=== PATIENT | male | born 1965 | race Caucasian/White ===

== ENCOUNTER → 2020-08-23 | Outpatient (CLI) | payer BC, OTHER ==
--- NOTE | 2020-08-25 16:02 | REP ---
LIMITED ABDOMINAL ULTRASOUND: 08/23/20. CLINICAL: Upper abdominal pain with nausea and vomiting. TECHNIQUE: Real time cosme scale ultrasound examination using curved array transducer. FINDINGS: Evaluation is limited due to overlying bowel gas and poor imaging window. The visualized portions of the liver are grossly unremarkable. There is a 9mm simple cyst in the right hepatic lobe. The pancreas is incompletely evaluated due to interposed bowel gas. The gallbladder is normal and without gallstones, wall thickening, or pericholecystic fluid. No biliary ductal dilation is appreciated and the common bile duct measures 4.3mm diameter. The right kidney is normal in reniform shape without hydronephrosis and measures 11.2 x 6.8 x 5.9cm. No ascites in the visualized right upper quadrant. IMPRESSION: 1. Sub centimeter benign appearing hepatic cyst. 2. Otherwise limited but grossly unremarkable right upper quadrant abdominal ultrasound. MTDD
== END ==
LOC: M RAD 06:31
PROVIDERS: ATTEND Physician Assistant Medical
DX: K76.89 Other specified diseases of liver (principal); R11.2 Nausea with vomiting, unspecified; R10.10 Upper abdominal pain, unspecified

== ENCOUNTER → 2020-10-23 | Outpatient (CLI) | payer BC ==
[~2020-10-23] MED LIST: GABA-843; LANTINJ4; LISI-542; METF-838; OMEP-218; ROSU10TA6
== END ==
LOC: M LABSMTC 09:26
PROVIDERS: ATTEND Anesthesiology
DX: Z01.818 Encounter for other preprocedural examination (principal); Z20.828 Contact with and (suspected) exposure to other viral communicable diseases

== ENCOUNTER 2020-10-28 08:11 | Day surgery (SDC) | payer BC ==
[~2020-10-28] VITALS: Ht 167.6 cm; Wt 87.1 kg
[~2020-10-28 08:11] MED LIST changes: +LIDOCAINE 2% 100MG/5ML SDV (FOR ANES.) As Ordered ONE; +NS 1,000 ML IV ONE; +propofoL 200 MG/20 ML VIAL As Ordered ONE
--- NOTE | 2020-10-28 09:33 | ROOR ---
Patient Name: Jori Arias Procedure Date: 10/28/2020 9:18 AM Date of : 1965 Age: 54 Room: [facility] Gender: Male Note Status: Finalized Procedure: Upper GI endoscopy Indications: Abdominal pain, Nausea Providers: Paulo PULLIAM MD Referring MD: Darby Bentley DO Requesting Provider: Medicines: Monitored Anesthesia Care Complications: No immediate complications. Procedure: Pre-Anesthesia Assessment: - The heart rate, respiratory rate, oxygen saturations, blood pressure, adequacy of pulmonary ventilation, and response to care were monitored throughout the procedure. The Endoscope was introduced through the mouth, and advanced to the second part of duodenum. The upper GI endoscopy was accomplished without difficulty. The patient tolerated the procedure well. Findings: Grade I varices were found in the lower third of the esophagus. The exam was otherwise without abnormality. Biopsies were taken with a cold forceps in the gastric antrum, in the second portion of the duodenum and in the third portion of the duodenum for Celiac disese testing and Helicobacter pylori testing. Impression: - Grade I esophageal varices. - The examination was otherwise normal. - Biopsies were taken with a cold forceps for Helicobacter pylori testing. Recommendation: - Return to my office at the next available appointment. (eval for portal hypertension) Procedure Code(s): --- Professional --- 95966, Esophagogastroduodenoscopy, flexible, transoral; with biopsy, single or multiple Diagnosis Code(s): --- Professional --- R10.9, Unspecified abdominal pain I85.00, Esophageal varices without bleeding R11.0, Nausea CPT copyright 2019 [employer]. All rights reserved. The codes documented in this report are preliminary and upon label coder review may be revised to meet current compliance requirements. Paluo Pulliam MD Paulo PULLIAM MD 10/28/2020 9:33:26 AM Electronically signed by Paulo PULLIAM MD Number of Addenda: 0 Note Initiated On: 10/28/2020 9:18 AM Estimated Blood Loss: Estimated blood loss: none.
[2020-10-28] MEDS ORDERED: propofoL 200 MG/20 ML VIAL As Ordered ONE (09:53)
--- NOTE | 2020-10-28 10:06 | ROOR ---
Patient Name: Jori Arias Procedure Date: 10/28/2020 9:19 AM Date of : 1965 Age: 54 Room: [facility] Gender: Male Note Status: Finalized Procedure: Colonoscopy Indications: High risk colon cancer surveillance: Personal history of colonic polyps Providers: Paulo PULLIAM MD Referring MD: Darby Bentley DO Requesting Provider: Medicines: Monitored Anesthesia Care Complications: No immediate complications. Procedure: Pre-Anesthesia Assessment: - The heart rate, respiratory rate, oxygen saturations, blood pressure, adequacy of pulmonary ventilation, and response to care were monitored throughout the procedure. The Colonoscope was introduced through the anus and advanced to the terminal ileum, with identification of the appendiceal orifice and IC valve. The colonoscopy was performed without difficulty. The patient tolerated the procedure well. The quality of the bowel preparation was adequate. Findings: The colon (entire examined portion) was redundant. Four sessile polyps were found in the ascending colon and cecum. The polyps were 4 to 6 mm in size. These polyps were removed with a cold snare. Resection and retrieval were complete. A localized area of granular mucosa was found at the ileocecal valve. Biopsies were taken with a cold forceps for histology. A 8 mm polyp was found in the recto-sigmoid colon. The polyp was semi-pedunculated. The polyp was removed with a cold snare. Resection and retrieval were complete. To prevent bleeding after the polypectomy, three hemostatic clips were successfully placed. There was no bleeding at the end of the procedure. Mild sigmoid diverticulosis and small internal hemorrhoids. The exam was otherwise without abnormality on direct and retroflexion views. Impression: - Redundant colon. - Granularity at the ileocecal valve. Biopsied. - Four 4 to 6 mm polyps in the ascending colon and in the cecum, removed with a cold snare. Resected and retrieved. - One 8 mm polyp at the recto-sigmoid colon, removed with a cold snare. Resected and retrieved. Clips were placed. - Mild sigmoid diverticulosis and small internal hemorrhoids. - The examination was otherwise normal on direct and retroflexion views. Recommendation: - Repeat colonoscopy in 3 years for surveillance. Procedure Code(s): --- Professional --- 31820, Colonoscopy, flexible; with removal of tumor(s), polyp(s), or other lesion(s) by snare technique 27817, 59, Colonoscopy, flexible; with biopsy, single or multiple Diagnosis Code(s): --- Professional --- Q43.8, Other specified congenital malformations of intestine K63.89, Other specified diseases of intestine Z86.010, Personal history of colonic polyps K63.5, Polyp of colon CPT copyright 2019 [employer]. All rights reserved. The codes documented in this report are preliminary and upon photograph retoucher review may be revised to meet current compliance requirements. Paulo Pulliam MD Paulo PULLIAM MD 10/28/2020 10:06:45 AM Electronically signed by Paulo PULLIAM MD Number of Addenda: 0 Note Initiated On: 10/28/2020 9:19 AM Estimated Blood Loss: Estimated blood loss: none.
[2020-10-28 10:30] VITALS: BP 148/87
== END 2020-10-28 10:52 | disposition home or self-care (01) ==
LOC: M OPP 08:11
PROVIDERS: ATTEND Internal Medicine Gastroenterology
DX: Z12.11 Encounter for screening for malignant neoplasm of colon (principal); Z86.010 Personal history of colon polyps; K63.5 Polyp of colon; K63.89 Other specified diseases of intestine; Q43.8 Other specified congenital malformations of intestine; K64.8 Other hemorrhoids; K21.9 Gastro-esophageal reflux disease without esophagitis; I85.00 Esophageal varices without bleeding; R10.9 Unspecified abdominal pain; R11.0 Nausea; E11.9 Type 2 diabetes mellitus without complications; Z79.4 Long term (current) use of insulin; Z79.899 Other long term (current) drug therapy

== ENCOUNTER → 2020-11-23 | Outpatient (CLI) | payer OTHER ==
[~2020-11-23] MED LIST changes: +GABA-282; -GABA-843; -LIDOCAINE 2% 100MG/5ML SDV (FOR ANES.) As Ordered ONE; -NS 1,000 ML IV ONE; -propofoL 200 MG/20 ML VIAL As Ordered ONE
[2020-11-23 16:50] LABS: HEMATOCRIT 40.7 % (42.0-52.0); HEMOGLOBIN 13.8 g/dl (13.5-17.5); MEAN CORPUSCULAR HEMOGLOBIN 29.8 pg (27.0-33.0); MEAN CORPUSCULAR HGB CONC 33.9 g/dl (32.0-36.5); MEAN CORPUSCULAR VOLUME 87.9 fl (80.0-96.0); RED BLOOD COUNT 4.63 10^6/uL (4.30-6.10); WHITE BLOOD COUNT 4.4 10^3/uL (4.0-10.0)
[2020-11-23 17:06] LABS: INR 1.05
[2020-11-23 17:07] LABS: PARTIAL THROMBOPLASTIN TIME 29.3 SECONDS (24.2-38.5)
[2020-11-23 17:09] LABS: PLATELET COUNT, AUTOMATED 71 10^3/uL (150-450)
[2020-11-23 19:49] LABS: ALBUMIN 3.8 GM/DL (3.2-5.2); ALT/SGPT 85 U/L (12-78); BILIRUBIN,DIRECT 0.2 MG/DL (0.0-0.2); BILIRUBIN,TOTAL 0.5 MG/DL (0.2-1.0); HEPATITIS A ANTIBODY IGM NEGATIVE (NEGATIVE); HEPATITIS B CORE ANTIBODY IGM NEGATIVE (NEGATIVE); HEPATITIS B SURFACE ANTIGEN NEGATIVE (NEGATIVE); HEPATITIS C VIRUS ABY INDEX < 0.0 INDEX (<0.8); IRON (FE) 41 UG/DL (65-175); PERCENT SATURATION 12.3 % (19.7-50.0); TOTAL IRON BINDING CAPACITY 332 UG/DL (250-450); TOTAL PROTEIN 6.7 GM/DL (6.4-8.2)
== END ==
LOC: M LAB 16:03
PROVIDERS: ATTEND Physician Assistant Medical
DX: I85.00 Esophageal varices without bleeding (principal)

== ENCOUNTER → 2020-12-08 | Outpatient (CLI) | payer OTHER ==
--- NOTE | 2020-12-08 08:42 | REP ---
INDICATION: ESOPHAGEAL VARICIES, EVAL FOR PORTAL VEIN THROMBOS TECHNIQUE: Real time B-mode cosme scale ultrasound examination using curved array transducer followed by color Doppler evaluation of the hepatic vasculature. FINDINGS: Liver demonstrates coarsened echotexture with irregular contour suggesting cirrhosis. No significant focal hepatic lesions are identified. Spleen is enlarged and measures 16.1 x 16.0 x 7.0 cm without focal splenic lesion identified. The pancreas is incompletely evaluated due to interposed bowel gas. Gallbladder and biliary ductal system are normal. Common bile duct measures 3.4 mm diameter. Bilateral kidneys normal in reniform shape without hydronephrosis. Right kidney measures 11.5 x 6.2 x 6.6 cm. Left kidney measures 13.3 x 5.9 x 6.7 cm. No ascites. Visualized abdominal aorta appears normal. Main portal vein measures 12.8 mm diameter and demonstrates normal flow direction and velocity at 20 cm/sec. Right and left intrahepatic portal veins also demonstrate normal flow direction, wave pattern and velocities measuring 14.2 cm/sec and 8.9 cm/sec, respectively. No evidence for portal vein thrombosis. IMPRESSION: Findings suggesting cirrhosis and associated splenomegaly. Doppler evaluation demonstrates normal portal veins without evidence for thrombosis. <Electronically signed by Jori Rosado > 12/08/20 08
== END ==
LOC: M RAD 07:13
PROVIDERS: ATTEND Physician Assistant Medical
DX: K74.60 Unspecified cirrhosis of liver (principal); R16.1 Splenomegaly, not elsewhere classified; I85.00 Esophageal varices without bleeding

== ENCOUNTER → 2020-12-15 | Outpatient (CLI) | payer OTHER | LOC: M LAB 10:29 | PROVIDERS: ATTEND Physician Assistant Medical | DX: K74.60 Unspecified cirrhosis of liver (principal) ==

== ENCOUNTER → 2021-04-17 | Outpatient (CLI) | payer OTHER ==
[~2021-04-17] MED LIST changes: -LISI-542; +LISI-898
[2021-04-19 15:08] LABS: AFP TUMOR TOTAL 1.7 ng/mL (0.0-8.0)
== END ==
LOC: M LAB 10:56
PROVIDERS: ATTEND Physician Assistant Medical
DX: K74.60 Unspecified cirrhosis of liver (principal)

== ENCOUNTER → 2021-05-26 | Outpatient (CLI) | payer OTHER ==
[2021-05-26 08:35] LABS: HEMATOCRIT 40.7 % (42.0-52.0); HEMOGLOBIN 13.6 g/dl (13.5-17.5); MEAN CORPUSCULAR HEMOGLOBIN 29.8 pg (27.0-33.0); MEAN CORPUSCULAR HGB CONC 33.4 g/dl (32.0-36.5); MEAN CORPUSCULAR VOLUME 89.3 fl (80.0-96.0); RED BLOOD COUNT 4.56 10^6/uL (4.30-6.10); WHITE BLOOD COUNT 4.9 10^3/uL (4.0-10.0)
--- NOTE | 2021-05-26 08:41 | REP ---
INDICATION: CIRRHOSIS PT NEEDS LABS AFTER US. COMPARISON: Comparison sonography December 08, 2020.. TECHNIQUE: Right upper quadrant sonography. Scan quality is inhibited by bowel gas and limited scan windows. FINDINGS: Scanning through the right upper quadrant the abdomen demonstrates a normal size liver with coarse parenchymal texture. No mass lesion is seen. There is an 8 mm cyst in the right lobe of the liver. No other focal liver lesion is seen. No intrahepatic ductal dilation is seen. The common bile duct is normal measuring 0.3 cm in greatest diameter. A normal sized and walled gallbladder is seen. Pancreas is obscured by abdominal gas. There is no evidence of ascites or right renal abnormality. The right kidney measures 11.6 x 6.8 x 5.7 cm. IMPRESSION: Coarse liver texture. Small right lobe hepatic cyst. No hepatic mass lesion is seen. No evidence of ascites. Pancreas is obscured by abdominal gas. <Electronically signed by Vasu Pepper > 05/26/21 [id number]
[2021-05-26 08:43] LABS: PLATELET COUNT, AUTOMATED 91 10^3/uL (150-450)
[2021-05-26 09:06] LABS: ALBUMIN 3.8 GM/DL (3.2-5.2); BILIRUBIN,DIRECT 0.2 MG/DL (0.0-0.2); BILIRUBIN,TOTAL 0.5 MG/DL (0.2-1.0); TOTAL PROTEIN 6.7 GM/DL (6.4-8.2)
== END ==
LOC: M RAD 07:37
PROVIDERS: ATTEND Physician Assistant Medical
DX: K74.60 Unspecified cirrhosis of liver (principal); K76.89 Other specified diseases of liver

== ENCOUNTER → 2021-12-07 | Outpatient (CLI) | payer BC ==
[~2021-12-07] MED LIST changes: -LISI-898; +LISI5TAB11; +OMEP-173; -OMEP-218
== END ==
LOC: M RAD 08:01
PROVIDERS: ATTEND Physician Assistant Medical
DX: K74.69 Other cirrhosis of liver (principal); R16.1 Splenomegaly, not elsewhere classified; K76.89 Other specified diseases of liver; R14.0 Abdominal distension (gaseous)

== ENCOUNTER → 2022-01-02 | Outpatient (CLI) | payer BC ==
[2022-01-02 10:37] LABS: HEMATOCRIT 40.9 % (42.0-52.0); HEMOGLOBIN 13.7 g/dl (13.5-17.5); MEAN CORPUSCULAR HEMOGLOBIN 28.7 pg (27.0-33.0); MEAN CORPUSCULAR HGB CONC 33.5 g/dl (32.0-36.5); MEAN CORPUSCULAR VOLUME 85.7 fl (80.0-96.0); PLATELET COUNT, AUTOMATED 100 10^3/uL (150-450); RED BLOOD COUNT 4.77 10^6/uL (4.30-6.10); WHITE BLOOD COUNT 4.8 10^3/uL (4.0-10.0)
[2022-01-02 11:12] LABS: ALBUMIN 3.7 GM/DL (3.2-5.2); ALT/SGPT 42 U/L (12-78); BILIRUBIN,DIRECT 0.2 MG/DL (0.0-0.2); BILIRUBIN,TOTAL 0.7 MG/DL (0.2-1.0); TOTAL PROTEIN 6.9 GM/DL (6.4-8.2)
== END ==
LOC: M LAB 10:04
PROVIDERS: ATTEND Physician Assistant Medical
DX: K74.69 Other cirrhosis of liver (principal)

== ENCOUNTER → 2022-01-30 | Outpatient (REF) | payer BC, OTHER | LOC: M LAB REF 12:44 | PROVIDERS: ATTEND Physician Assistant Medical | DX: R19.4 Change in bowel habit (principal) ==

== ENCOUNTER → 2022-02-02 | Outpatient (CLI) | payer BC, OTHER ==
[~2022-02-02] MED LIST changes: +BASA100I SC; -GABA-282; +GABA-282 PO; +LISI2.5T9 PO; -METF-838; +METF-838 PO; -OMEP-173; +OMEP-173 PO; +OZEM2INJ SC; +PROP80TA PO; +ROSU5TAB5 PO
== END ==
LOC: M LABSMTC 11:18
PROVIDERS: ATTEND Anesthesiology
DX: Z01.818 Encounter for other preprocedural examination (principal); Z20.822 Contact with and (suspected) exposure to COVID-19

== ENCOUNTER 2022-02-06 09:00 | Day surgery (SDC) | payer BC ==
[~2022-02-06] VITALS: Ht 167.6 cm; Wt 78.6 kg
[~2022-02-06 09:00] MED LIST changes: +LIDOCAINE 2% 100MG/5ML SDV (FOR ANES.) As Ordered ONE; +propofoL 200 MG/20 ML VIAL As Ordered ONE; +propofoL 500 MG/50 ML VIAL As Ordered ONE
[2022-02-06] MEDS ORDERED: NS 1,000 ML IV ONE (09:30)
[2022-02-06] MEDS ORDERED: GLUCAGON INJ 1MG VIAL As Ordered ONE (10:43)
[2022-02-06] MEDS ORDERED: propofoL 200 MG/20 ML VIAL As Ordered ONE (10:53)
[2022-02-06 11:35] VITALS: BP 144/76
== END 2022-02-06 11:52 | disposition home or self-care (01) ==
LOC: M OPP 09:00
PROVIDERS: ATTEND Internal Medicine Gastroenterology
DX: K63.5 Polyp of colon (principal); Q43.8 Other specified congenital malformations of intestine; K92.1 Melena; K64.8 Other hemorrhoids; R19.7 Diarrhea, unspecified; K74.60 Unspecified cirrhosis of liver; I85.10 Secondary esophageal varices without bleeding; Z79.4 Long term (current) use of insulin; Z79.899 Other long term (current) drug therapy
CPT/HCPCS: 43244; 45380; 45381; 45385; 88305; J1610

== ENCOUNTER → 2022-03-22 | Outpatient (CLI) | payer BC, OTHER ==
[~2022-03-22] MED LIST changes: -LIDOCAINE 2% 100MG/5ML SDV (FOR ANES.) As Ordered ONE; -propofoL 200 MG/20 ML VIAL As Ordered ONE; -propofoL 500 MG/50 ML VIAL As Ordered ONE
== END ==
LOC: M LABSMTC 09:22
PROVIDERS: ATTEND Anesthesiology
DX: Z01.812 Encounter for preprocedural laboratory examination (principal); Z20.822 Contact with and (suspected) exposure to COVID-19

== ENCOUNTER 2022-03-27 07:21 | Day surgery (SDC) | payer BC ==
[~2022-03-27] VITALS: Ht 167.6 cm; Wt 81.2 kg
[~2022-03-27 07:21] MED LIST changes: +LIDOCAINE 2% 100MG/5ML SDV (FOR ANES.) As Ordered ONE; +NS 1,000 ML IV ONE; +propofoL 200 MG/20 ML VIAL As Ordered ONE
[2022-03-27] MEDS ORDERED: fentaNYL 100 MCG/2 ML INJECTION As Ordered ONE (07:55)
[2022-03-27 08:40] VITALS: BP 140/88
== END 2022-03-27 08:50 | disposition home or self-care (01) ==
LOC: M OPP 07:21
PROVIDERS: ATTEND Internal Medicine Gastroenterology
DX: I85.00 Esophageal varices without bleeding (principal); K74.60 Unspecified cirrhosis of liver; E11.9 Type 2 diabetes mellitus without complications; Z79.1 Long term (current) use of non-steroidal anti-inflammatories (NSAID); Z79.4 Long term (current) use of insulin; Z79.02 Long term (current) use of antithrombotics/antiplatelets; Z79.899 Other long term (current) drug therapy
CPT/HCPCS: 43244; J3010

== ENCOUNTER → 2022-05-06 | Outpatient (CLI) | payer BC ==
[~2022-05-06] MED LIST changes: -LIDOCAINE 2% 100MG/5ML SDV (FOR ANES.) As Ordered ONE; -NS 1,000 ML IV ONE; +PROP120C PO; -propofoL 200 MG/20 ML VIAL As Ordered ONE
== END ==
LOC: M LABSMTC 10:21
PROVIDERS: ATTEND Anesthesiology
DX: Z01.812 Encounter for preprocedural laboratory examination (principal); Z20.822 Contact with and (suspected) exposure to COVID-19

== ENCOUNTER 2022-05-11 11:05 | Day surgery (SDC) | payer BC ==
[~2022-05-11] VITALS: Ht 167.6 cm; Wt 80.0 kg
[~2022-05-11 11:05] MED LIST changes: +NS 1,000 ML IV ONE
[2022-05-11] MEDS ORDERED: propofoL 200 MG/20 ML VIAL As Ordered ONE (12:09)
[2022-05-11] MEDS ORDERED: LIDOCAINE 2% INJ 100 MG/5 ML SYRINGE As Ordered ONE (12:09)
[2022-05-11] MEDS ORDERED: fentaNYL 100 MCG/2 ML INJECTION As Ordered ONE (12:09)
[2022-05-11] MEDS ORDERED: DEXTROSE 50% 50 ML SYRINGE IV STA (13:13)
[2022-05-11 14:19] VITALS: BP 110/71
== END 2022-05-11 14:25 | disposition home or self-care (01) ==
LOC: M OPP 11:05
PROVIDERS: ATTEND Internal Medicine Gastroenterology
DX: I85.00 Esophageal varices without bleeding (principal); K74.60 Unspecified cirrhosis of liver; E11.9 Type 2 diabetes mellitus without complications; Z79.02 Long term (current) use of antithrombotics/antiplatelets; Z79.1 Long term (current) use of non-steroidal anti-inflammatories (NSAID); Z79.4 Long term (current) use of insulin; Z79.891 Long term (current) use of opiate analgesic; Z79.899 Other long term (current) drug therapy
CPT/HCPCS: 43235; J3010

== ENCOUNTER → 2022-07-04 | Outpatient (CLI) | payer BC ==
[~2022-07-04] MED LIST changes: -NS 1,000 ML IV ONE
[2022-07-04 09:56] LABS: HEMATOCRIT 40.5 % (42.0-52.0); HEMOGLOBIN 13.7 g/dl (13.5-17.5); MEAN CORPUSCULAR HEMOGLOBIN 30.2 pg (27.0-33.0); MEAN CORPUSCULAR HGB CONC 33.8 g/dl (32.0-36.5); MEAN CORPUSCULAR VOLUME 89.2 fl (80.0-96.0); RED BLOOD COUNT 4.54 10^6/uL (4.30-6.10); WHITE BLOOD COUNT 3.9 10^3/uL (4.0-10.0)
[2022-07-04 10:19] LABS: ALBUMIN 3.6 GM/DL (3.2-5.2); BILIRUBIN,DIRECT 0.3 MG/DL (0.0-0.2); BILIRUBIN,TOTAL 1.1 MG/DL (0.2-1.0); TOTAL PROTEIN 6.4 GM/DL (6.4-8.2)
[2022-07-04 10:31] LABS: PLATELET COUNT, AUTOMATED 76 10^3/uL (150-450)
== END ==
LOC: M RAD 08:46
PROVIDERS: ATTEND Physician Assistant Medical
DX: K74.69 Other cirrhosis of liver (principal)

== ENCOUNTER → 2023-01-28 | Outpatient (CLI) | payer BC | LOC: M RAD 08:56 | PROVIDERS: ATTEND Physician Assistant Medical | DX: K74.69 Other cirrhosis of liver (principal); R14.0 Abdominal distension (gaseous) ==

== ENCOUNTER → 2023-01-29 | Outpatient (CLI) | payer BC ==
[2023-01-29 09:40] LABS: HEMATOCRIT 42.3 % (42.0-52.0); HEMOGLOBIN 14.1 g/dl (13.5-17.5); MEAN CORPUSCULAR HEMOGLOBIN 29.8 pg (27.0-33.0); MEAN CORPUSCULAR HGB CONC 33.3 g/dl (32.0-36.5); MEAN CORPUSCULAR VOLUME 89.4 fl (80.0-96.0); RED BLOOD COUNT 4.73 10^6/uL (4.30-6.10); WHITE BLOOD COUNT 5.2 10^3/uL (4.0-10.0)
[2023-01-29 09:47] LABS: PLATELET COUNT, AUTOMATED 86 10^3/uL (150-450)
[2023-01-29 10:07] LABS: ALBUMIN 3.6 G/DL (3.2-5.2); BILIRUBIN,DIRECT 0.4 MG/DL (<0.4); TOTAL PROTEIN 6.2 G/DL (5.7-8.2)
== END ==
LOC: M LAB 08:57
PROVIDERS: ATTEND Physician Assistant Medical
DX: K74.69 Other cirrhosis of liver (principal)

== ENCOUNTER → 2023-07-23 | Outpatient (CLI) | payer BC | LOC: M RAD 07:01 | PROVIDERS: ATTEND Physician Assistant Medical | DX: K74.69 Other cirrhosis of liver (principal); K76.89 Other specified diseases of liver ==

== ENCOUNTER 2023-08-23 12:18 | Day surgery (SDC) | payer BC ==
[~2023-08-23] VITALS: Ht 167.6 cm; Wt 81.0 kg
[~2023-08-23 12:18] MED LIST changes: +NS 1,000 ML IV ONE; +SEMA0.257
[2023-08-23 13:24] VITALS: TEMP 96.5
[2023-08-23 13:47] VITALS: BP 101/58; O2SAT 98
== END 2023-08-23 13:49 | disposition home or self-care (01) ==
LOC: M OPP 12:18
PROVIDERS: ATTEND Internal Medicine Gastroenterology
DX: I85.00 Esophageal varices without bleeding (principal); K76.6 Portal hypertension; K31.89 Other diseases of stomach and duodenum; E11.9 Type 2 diabetes mellitus without complications; Z79.02 Long term (current) use of antithrombotics/antiplatelets; Z79.1 Long term (current) use of non-steroidal anti-inflammatories (NSAID); Z79.4 Long term (current) use of insulin; Z79.83 Long term (current) use of bisphosphonates; Z79.891 Long term (current) use of opiate analgesic; Z79.899 Other long term (current) drug therapy

== ENCOUNTER → 2023-10-11 | Outpatient (REF) | payer BC ==
[~2023-10-11] MED LIST changes: -NS 1,000 ML IV ONE
[2023-10-11 13:03] LABS: ALBUMIN 3.5 G/DL (3.2-5.2); ALKALINE PHOSPHATASE 80 U/L (46-116); ALT/SGPT 63 U/L (7.0-40); AST/SGOT 40 U/L (<34); BASO % 0.7 % (0.0-1.0); BILIRUBIN,TOTAL 0.9 MG/DL (0.3-1.2); BLOOD UREA NITROGEN 14 MG/DL (9-23); CARBON DIOXIDE LEVEL 26 MMOL/L (20-31); CHLORIDE LEVEL 106 MMOL/L (98-107); CHOLESTEROL LEVEL 117 MG/DL (<200); CREATININE FOR GFR 0.68 MG/DL (0.70-1.30); EOS # 0.1 10^3/uL (0.0-0.5); EOS % 1.9 % (0.0-3.0); GLOMERULAR FILTRATION RATE > 60.0 (>56); GLUCOSE, FASTING 131 MG/DL (60-100); HDL CHOLESTEROL 27.8 MG/DL (>40); HEMATOCRIT 41.4 % (42.0-52.0); HEMOGLOBIN 13.9 g/dl (13.5-17.5); LDL CHOLESTEROL 52.6 MG/DL (<100); LYMPH # 0.9 10^3/uL (1.5-5.0); LYMPH % 21.4 % (24.0-44.0); MEAN CORPUSCULAR HEMOGLOBIN 30.2 pg (27.0-33.0); MEAN CORPUSCULAR HGB CONC 33.6 g/dl (32.0-36.5); MEAN CORPUSCULAR VOLUME 89.8 fl (80.0-96.0); MONO # 0.4 10^3/uL (0.0-0.8); NEUTROPHILS # 2.8 10^3/uL (1.5-8.5); NEUTROPHILS % 65.5 % (36.0-66.0); NON-HDL-C 89.2 MG/DL; POTASSIUM SERUM 4.5 MMOL/L (3.5-5.1); RED BLOOD COUNT 4.61 10^6/uL (4.30-6.10); SODIUM LEVEL 139 MMOL/L (136-145); TOTAL PROTEIN 6.1 G/DL (5.7-8.2); TRIGLYCERIDES LEVEL 183 MG/DL (<150); WHITE BLOOD COUNT 4.2 10^3/uL (4.0-10.0)
[2023-10-11 13:07] LABS: PLATELET COUNT, AUTOMATED 75 10^3/uL (150-450)
[2023-10-11 13:54] LABS: HEMOGLOBIN A1c 5.5 % (4.0-6.0)
[2023-10-11 16:49] LABS: VITAMIN B12 LEVEL 392 PG/ML (211-911)
== END ==
LOC: M LAB REF 11:55
PROVIDERS: ATTEND Internal Medicine
DX: E78.5 Hyperlipidemia, unspecified (principal); D69.6 Thrombocytopenia, unspecified; E11.9 Type 2 diabetes mellitus without complications; N52.9 Male erectile dysfunction, unspecified; G60.9 Hereditary and idiopathic neuropathy, unspecified

== ENCOUNTER → 2023-12-06 | Outpatient (CLI) | payer BC | LOC: M PLAIMG 09:34 | PROVIDERS: ATTEND Podiatrist Foot & Ankle Surgery | DX: G57.51 Tarsal tunnel syndrome, right lower limb (principal); M67.471 Ganglion, right ankle and foot ==

== ENCOUNTER → 2024-01-21 | Outpatient (CLI) | payer BC ==
[2024-01-21 08:51] LABS: HEMATOCRIT 42.1 % (42.0-52.0); HEMOGLOBIN 14.3 g/dl (13.5-17.5); MEAN CORPUSCULAR HEMOGLOBIN 30.1 pg (27.0-33.0); MEAN CORPUSCULAR VOLUME 88.6 fl (80.0-96.0); RED BLOOD COUNT 4.75 10^6/uL (4.30-6.10); WHITE BLOOD COUNT 4.3 10^3/uL (4.0-10.0)
[2024-01-21 08:56] LABS: PLATELET COUNT, AUTOMATED 82 10^3/uL (150-450)
[2024-01-21 09:17] LABS: ALBUMIN 3.7 G/DL (3.2-5.2); BILIRUBIN,DIRECT 0.4 MG/DL (<0.4); BILIRUBIN,TOTAL 1.2 MG/DL (0.3-1.2); TOTAL PROTEIN 6.3 G/DL (5.7-8.2)
== END ==
LOC: M RAD 07:49
PROVIDERS: ATTEND Physician Assistant Medical
DX: K74.69 Other cirrhosis of liver (principal); K76.89 Other specified diseases of liver

== ENCOUNTER → 2024-06-16 | Outpatient (REF) | payer BC ==
[~2024-06-16] MED LIST changes: -ROSU10TA6; +ROSU10TA61; +ROSU5TAB40 PO; -ROSU5TAB5 PO
[2024-06-16 15:47] LABS: BLOOD UREA NITROGEN 12 MG/DL (9-23); CARBON DIOXIDE LEVEL 24 MMOL/L (20-31); CHLORIDE LEVEL 108 MMOL/L (98-107); CREATININE FOR GFR 0.59 MG/DL (0.70-1.30); GLOMERULAR FILTRATION RATE > 60.0 (>49); GLUCOSE, FASTING 102 MG/DL (74-106); SODIUM LEVEL 139 MMOL/L (136-145)
[2024-06-16 15:48] LABS: HEMOGLOBIN A1c 5.2 % (4.0-6.0)
[2024-06-16 18:03] LABS: C REACTIVE PROTEIN QUANTITATIV < 0.40 MG/DL (<1.0)
[2024-06-16 18:05] LABS: ALBUMIN 3.5 G/DL (3.2-5.2); ALKALINE PHOSPHATASE 94 U/L (46-116); ALT/SGPT 58 U/L (7.0-40); AST/SGOT 41 U/L (<34); BILIRUBIN,DIRECT 0.4 MG/DL (<0.4); BILIRUBIN,TOTAL 0.8 MG/DL (0.3-1.2); CHOLESTEROL LEVEL 102 MG/DL (<200); CHOLESTEROL RISK RATIO 4.45 (<5); HDL CHOLESTEROL 22.9 MG/DL (>40); LDL CHOLESTEROL 58.3 MG/DL (<100); NON-HDL-C 79.1 MG/DL; TOTAL PROTEIN 6.4 G/DL (5.7-8.2); TRIGLYCERIDES LEVEL 104 MG/DL (<150)
[2024-06-16 18:07] LABS: THYROID STIMULATING HORMONE 1.231 uIU/ML (0.55-4.78)
[2024-06-16 21:53] LABS: BASO % 0.6 % (0.0-1.0); EOS # 0.1 10^3/uL (0.0-0.5); EOS % 2.2 % (0.0-3.0); HEMOGLOBIN 13.1 g/dl (13.5-17.5); LYMPH # 1.1 10^3/uL (1.5-5.0); LYMPH % 22.4 % (24.0-44.0); MEAN CORPUSCULAR HEMOGLOBIN 29.9 pg (27.0-33.0); MEAN CORPUSCULAR HGB CONC 32.8 g/dl (32.0-36.5); MEAN CORPUSCULAR VOLUME 91.3 fl (80.0-96.0); MONO # 0.5 10^3/uL (0.0-0.8); MONO % 10.4 % (2.0-8.0); NEUTROPHILS # 3.1 10^3/uL (1.5-8.5); NEUTROPHILS % 63.6 % (36.0-66.0); PLATELET COUNT, AUTOMATED 105 10^3/uL (150-450); RED BLOOD COUNT 4.38 10^6/uL (4.30-6.10); WHITE BLOOD COUNT 4.9 10^3/uL (4.0-10.0)
== END ==
LOC: M LAB REF 13:56
PROVIDERS: ATTEND Internal Medicine
DX: E11.9 Type 2 diabetes mellitus without complications (principal); R05.9 Cough, unspecified

== ENCOUNTER → 2024-08-18 | Outpatient (CLI) | payer BC ==
[~2024-08-18] MED LIST changes: +EQL50TAB2 PO; +GABA-1172 PO; -GABA-282 PO; +PROP40TA62 PO; -SEMA0.257; +SEMA0.257 SC
[2024-08-18 12:25] LABS: HEMATOCRIT 39.2 % (42.0-52.0); HEMOGLOBIN 13.2 g/dl (13.5-17.5); MEAN CORPUSCULAR HEMOGLOBIN 29.7 pg (27.0-33.0); MEAN CORPUSCULAR HGB CONC 33.7 g/dl (32.0-36.5); MEAN CORPUSCULAR VOLUME 88.3 fl (80.0-96.0); PLATELET COUNT, AUTOMATED 70 10^3/uL (150-450); RED BLOOD COUNT 4.44 10^6/uL (4.30-6.10); WHITE BLOOD COUNT 3.9 10^3/uL (4.0-10.0)
[2024-08-18 12:48] LABS: ALBUMIN 3.6 G/DL (3.2-5.2); ALKALINE PHOSPHATASE 84 U/L (46-116); ALT/SGPT 49 U/L (7.0-40); AST/SGOT 38 U/L (<34); BILIRUBIN,DIRECT 0.4 MG/DL (<0.4); BILIRUBIN,TOTAL 1.2 MG/DL (0.3-1.2); TOTAL PROTEIN 6.4 G/DL (5.7-8.2)
== END ==
LOC: M LAB 11:33
PROVIDERS: ATTEND Physician Assistant Medical
DX: K74.69 Other cirrhosis of liver (principal)

== ENCOUNTER 2024-08-19 06:53 | Day surgery (SDC) | payer BC ==
[~2024-08-19] VITALS: Ht 167.6 cm; Wt 78.9 kg
[2024-08-19] MEDS ORDERED: LR 1,000 ML IV SCH (06:55)
[2024-08-19] MEDS ORDERED: KETAMINE HCL 200MG/20ML VIAL As Ordered ONE (07:05)
[2024-08-19] MEDS ORDERED: ACETAMINOPHEN 1000MG 100ML IV BAG As Ordered ONE (07:06)
[2024-08-19] MEDS ORDERED: propofoL 200 MG/20 ML VIAL As Ordered ONE (07:06)
[2024-08-19] MEDS ORDERED: fentaNYL 100 MCG/2 ML INJECTION As Ordered ONE (07:06)
[2024-08-19] MEDS ORDERED: MIDAZOLAM INJ 2MG/2ML VIAL As Ordered ONE (07:06)
[2024-08-19] MEDS ORDERED: ONDANSETRON 4MG 2ML VIAL As Ordered ONE (07:06)
[2024-08-19] MEDS ORDERED: LIDOCAINE 2% 100MG/5ML SDV (FOR ANES.) As Ordered ONE (07:06)
[2024-08-19] MEDS ORDERED: GLYCOPYRROLATE INJ 0.2 MG/ML 2 ML VIAL As Ordered ONE (07:06)
[2024-08-19] MEDS ORDERED: KETOROLAC 60MG 2ML VIAL As Ordered ONE (07:07)
[2024-08-19] MEDS: ceFAZolin SOD 2 GM in IV 1 EA IV ONE (07:40)
[2024-08-19] MEDS ORDERED: ePHEDrine SULFATE 25 MG/5 ML(5MG/ML) SYRINGE As Ordered ONE (08:06)
[2024-08-19] MEDS: LIDOCAINE 1% MDV 20ML VIAL As Ordered ONE (08:19)
[2024-08-19 08:50] VITALS: BP 120/75; TEMP 97.8; O2SAT 97
== END 2024-08-19 08:52 | disposition home or self-care (01) ==
LOC: M SDC 06:53
PROVIDERS: ATTEND Podiatrist Foot & Ankle Surgery
DX: M72.2 Plantar fascial fibromatosis (principal); E11.9 Type 2 diabetes mellitus without complications; E78.5 Hyperlipidemia, unspecified; I10 Essential (primary) hypertension; K21.9 Gastro-esophageal reflux disease without esophagitis; Z79.84 Long term (current) use of oral hypoglycemic drugs; Z79.899 Other long term (current) drug therapy
CPT/HCPCS: 28060; 93005; J0131; J0665; J0690; J1596; J1885; J2250; J2405; J3010

== ENCOUNTER → 2024-09-21 | Outpatient (CLI) | payer BC ==
[~2024-09-21] MED LIST changes: -ROSU5TAB40 PO; +ROSU5TAB49 PO
== END ==
LOC: M RAD 07:16
PROVIDERS: ATTEND Physician Assistant Medical
DX: K74.69 Other cirrhosis of liver (principal)

== ENCOUNTER → 2024-09-29 | Outpatient (REF) | payer BC ==
[2024-09-29 16:48] LABS: APPEARANCE, URINE CLEAR (CLEAR); BACTERIA, URINE AUTO NEGATIVE (NEGATIVE); BILIRUBIN, URINE AUTO NEGATIVE (NEGATIVE); BLOOD, URINE BLOOD NEGATIVE (NEGATIVE); COLOR, URINE YELLOW (YELLOW); GLUCOSE, URINE (UA) AUTO NEGATIVE (NEGATIVE); KETONE, URINE AUTO NEGATIVE (NEGATIVE); LEUKOCYTE ESTERASE, URINE AUTO NEGATIVE (NEGATIVE); NITRITE, URINE AUTO NEGATIVE (NEGATIVE); PROTEIN, URINE AUTO NEGATIVE (NEGATIVE); RBC, URINE AUTO 0 /HPF (0-3); SPECIFIC GRAVITY URINE AUTO 1.011 (1.002-1.035); SQUAMOUS EPITHELIAL CELL UR AU 0 /HPF (0-6); WBC, URINE AUTO 0 /HPF (0-3)
[2024-09-29 16:54] LABS: BASO # 0.1 10^3/uL (0.0-0.2); BASO % 0.7 % (0.0-1.0); EOS # 0.2 10^3/uL (0.0-0.5); EOS % 2.4 % (0.0-3.0); HEMATOCRIT 43.2 % (42.0-52.0); HEMOGLOBIN 14.6 g/dl (13.5-17.5); LYMPH # 1.6 10^3/uL (1.5-5.0); LYMPH % 17.8 % (24.0-44.0); MEAN CORPUSCULAR HEMOGLOBIN 29.6 pg (27.0-33.0); MEAN CORPUSCULAR HGB CONC 33.8 g/dl (32.0-36.5); MEAN CORPUSCULAR VOLUME 87.6 fl (80.0-96.0); MONO # 0.8 10^3/uL (0.0-0.8); NEUTROPHILS # 6.3 10^3/uL (1.5-8.5); NEUTROPHILS % 69.2 % (36.0-66.0); PLATELET COUNT, AUTOMATED 146 10^3/uL (150-450); RED BLOOD COUNT 4.93 10^6/uL (4.30-6.10); WHITE BLOOD COUNT 9.1 10^3/uL (4.0-10.0)
[2024-09-29 17:16] LABS: BLOOD UREA NITROGEN 8 MG/DL (9-23); CALCIUM LEVEL 9.4 MG/DL (8.3-10.6); CARBON DIOXIDE LEVEL 29 MMOL/L (20-31); CHLORIDE LEVEL 106 MMOL/L (98-107); CREATININE FOR GFR 0.61 MG/DL (0.70-1.30); GLOMERULAR FILTRATION RATE > 60.0 (>49); GLUCOSE, FASTING 84 MG/DL (74-106); POTASSIUM SERUM 4.2 MMOL/L (3.5-5.1); SODIUM LEVEL 139 MMOL/L (136-145)
== END ==
LOC: M LAB REF 16:17
PROVIDERS: ATTEND Internal Medicine
DX: D69.6 Thrombocytopenia, unspecified (principal); E78.5 Hyperlipidemia, unspecified; R53.83 Other fatigue

== ENCOUNTER 2024-11-16 13:57 | Day surgery (SDC) | payer BC ==
[~2024-11-16] VITALS: Ht 167.6 cm; Wt 79.9 kg
[~2024-11-16 13:57] MED LIST changes: +PROP60CA PO
[2024-11-16] MEDS ORDERED: fentaNYL 100 MCG/2 ML INJECTION As Ordered ONE (15:42)
[2024-11-16] MEDS ORDERED: LIDOCAINE 2% 100MG/5ML SDV (FOR ANES.) As Ordered ONE (15:42)
[2024-11-16] MEDS ORDERED: propofoL 200 MG/20 ML VIAL As Ordered ONE (15:44)
[2024-11-16 16:26] VITALS: TEMP 97.4
[2024-11-16 16:55] VITALS: BP 105/69; O2SAT 99
== END 2024-11-16 17:00 | disposition home or self-care (01) ==
LOC: M OPP 13:57
PROVIDERS: ATTEND Internal Medicine Gastroenterology
DX: I85.00 Esophageal varices without bleeding (principal); Z79.4 Long term (current) use of insulin; Z79.85 Long-term (current) use of injectable non-insulin antidiabetic drugs; Z79.899 Other long term (current) drug therapy; K74.60 Unspecified cirrhosis of liver
CPT/HCPCS: 43235; J3010

== ENCOUNTER → 2024-11-18 | Outpatient (CLI) | payer BC ==
[~2024-11-18] MED LIST changes: +PROHANCE 279.3MG/ML 15ML VIAL ONE
== END ==
LOC: M PLAIMG 14:12
PROVIDERS: ATTEND Physician Assistant Medical
DX: K74.69 Other cirrhosis of liver (principal); Q44.6 Cystic disease of liver; R16.1 Splenomegaly, not elsewhere classified; K21.9 Gastro-esophageal reflux disease without esophagitis; I85.00 Esophageal varices without bleeding
CPT/HCPCS: 74183; A9576

== ENCOUNTER → 2024-11-19 | Outpatient (REF) | payer BC ==
[~2024-11-19] MED LIST changes: -PROHANCE 279.3MG/ML 15ML VIAL ONE
[2024-11-19 14:29] LABS: BLOOD UREA NITROGEN 11 MG/DL (9-23); CALCIUM LEVEL 9.7 MG/DL (8.3-10.6); CARBON DIOXIDE LEVEL 26 MMOL/L (20-31); CHLORIDE LEVEL 106 MMOL/L (98-107); CREATININE FOR GFR 0.71 MG/DL (0.70-1.30); GLOMERULAR FILTRATION RATE > 60.0 (>49); GLUCOSE, FASTING 114 MG/DL (74-106); POTASSIUM SERUM 4.3 MMOL/L (3.5-5.1); SODIUM LEVEL 139 MMOL/L (136-145)
[2024-11-19 15:40] LABS: HEMOGLOBIN A1c 5.9 % (4.0-6.0)
[2024-11-19 16:36] LABS: PSA SCREENING 0.32 NG/ML (< 4.00)
== END ==
LOC: M LAB REF 13:32
PROVIDERS: ATTEND Internal Medicine
DX: E11.9 Type 2 diabetes mellitus without complications (principal); E78.5 Hyperlipidemia, unspecified

== ENCOUNTER 2024-11-30 06:20 | Day surgery (SDC) | payer BC ==
[~2024-11-30] VITALS: Ht 167.6 cm; Wt 78.5 kg
[~2024-11-30 06:20] MED LIST changes: +TADA20TA PO
[2024-11-30] MEDS ORDERED: LIDOCAINE 1% SDV 5ML VIAL As Ordered ONE (06:37)
[2024-11-30] MEDS ORDERED: MIDAZOLAM INJ 2MG/2ML VIAL As Ordered ONE (06:52)
[2024-11-30] MEDS ORDERED: fentaNYL 100 MCG/2 ML INJECTION As Ordered ONE (06:52)
[2024-11-30] MEDS: CYCLOPENTOLATE 1% OPHTH SOLN 2ML BTL OD SCH (06:57)
[2024-11-30] MEDS: PHENYLEPHRINE 2.5% OPHTH SOL 2ML OD SCH (06:58)
[2024-11-30] MEDS: TETRACAINE 0.5% OPHTH SOLN 4ML OD SCH (06:58)
[2024-11-30] MEDS: FLURBIPROFEN 0.03% OPHTH SOLN 2.5 ML OD SCH (06:58)
[2024-11-30] MEDS ORDERED: LR 1,000 ML IV SCH (07:00)
[2024-11-30] MEDS: CEFUROXIME 1MG/0.1ML INTRACAMERAL INJ As Ordered ONE (07:34)
[2024-11-30 07:54] VITALS: BP 121/64; TEMP 97.1; O2SAT 100
== END 2024-11-30 08:13 | disposition home or self-care (01) ==
LOC: M SDC 06:20
PROVIDERS: ATTEND Ophthalmology
DX: E11.36 Type 2 diabetes mellitus with diabetic cataract (principal); H25.11 Age-related nuclear cataract, right eye; I10 Essential (primary) hypertension; E78.00 Pure hypercholesterolemia, unspecified; K74.60 Unspecified cirrhosis of liver; I85.10 Secondary esophageal varices without bleeding; K21.9 Gastro-esophageal reflux disease without esophagitis; Z79.899 Other long term (current) drug therapy; Z79.4 Long term (current) use of insulin; Z79.85 Long-term (current) use of injectable non-insulin antidiabetic drugs
CPT/HCPCS: 66984; J0697; J2250; J3010

== ENCOUNTER → 2025-02-15 | Outpatient (REF) | payer BC | LOC: M LAB REF 17:42 | PROVIDERS: ATTEND Internal Medicine | DX: Z11.59 Encounter for screening for other viral diseases (principal) ==

== ENCOUNTER → 2025-02-25 | Outpatient (CLI) | payer BC ==
[2025-02-25 09:21] LABS: HEMATOCRIT 38.3 % (42.0-52.0); HEMOGLOBIN 13.2 g/dl (13.5-17.5); MEAN CORPUSCULAR HEMOGLOBIN 30.1 pg (27.0-33.0); MEAN CORPUSCULAR HGB CONC 34.5 g/dl (32.0-36.5); MEAN CORPUSCULAR VOLUME 87.4 fl (80.0-96.0); RED BLOOD COUNT 4.38 10^6/uL (4.30-6.10); WHITE BLOOD COUNT 5.6 10^3/uL (4.0-10.0)
[2025-02-25 09:38] LABS: ALBUMIN 3.5 G/DL (3.2-5.2); ALKALINE PHOSPHATASE 84 U/L (40-129); ALT/SGPT 52 U/L (7.0-40); AST/SGOT 39 U/L (<34); BILIRUBIN,DIRECT 0.4 MG/DL (<0.4); TOTAL PROTEIN 6.4 G/DL (5.7-8.2)
[2025-02-25 09:51] LABS: PLATELET COUNT, AUTOMATED 81 10^3/uL (150-450)
== END ==
LOC: M LAB 08:21
PROVIDERS: ATTEND Physician Assistant Medical
DX: K74.69 Other cirrhosis of liver (principal)

== ENCOUNTER → 2025-05-21 | Outpatient (REF) | payer BC ==
[~2025-05-21] MED LIST changes: -EQL50TAB2 PO; +VITA1TAB82 PO
[2025-05-21 13:02] LABS: ALT/SGPT 43 U/L (7.0-40); AST/SGOT 36 U/L (<34); CALCIUM LEVEL 8.9 MG/DL (8.3-10.6); CARBON DIOXIDE LEVEL 28 MMOL/L (20-31); CHLORIDE LEVEL 104 MMOL/L (98-107); CHOLESTEROL LEVEL 112 MG/DL (<200); CHOLESTEROL RISK RATIO 3.20 (<5); CREATININE FOR GFR 0.68 MG/DL (0.70-1.30); GLOMERULAR FILTRATION RATE > 90.0 (>49); LDL CHOLESTEROL 62.3 MG/DL (<100); NON-HDL-C 77.1 MG/DL; POTASSIUM SERUM 4.2 MMOL/L (3.5-5.1); SODIUM LEVEL 139 MMOL/L (136-145); TRIGLYCERIDES LEVEL 74 MG/DL (<150)
[2025-05-21 13:07] LABS: BASO # 0.0 10^3/uL (0.0-0.2); BASO % 0.5 % (0.0-1.0); EOS # 0.1 10^3/uL (0.0-0.5); EOS % 2.2 % (0.0-3.0); LYMPH # 0.7 10^3/uL (1.5-5.0); LYMPH % 18.1 % (24.0-44.0); MONO # 0.5 10^3/uL (0.0-0.8); MONO % 11.4 % (2.0-8.0); NEUTROPHILS # 2.7 10^3/uL (1.5-8.5); NEUTROPHILS % 67.1 % (36.0-66.0)
[2025-05-21 13:08] LABS: PLATELET COUNT, AUTOMATED 65 10^3/uL (150-450)
[2025-05-21 13:35] LABS: CREATININE, URINE 60.2 MG/DL
[2025-05-21 13:36] LABS: MALB URINE SIEMENS < 3.0 MG/L
[2025-05-21 15:38] LABS: ESTIMATED AVERAGE GLUCOSE 114.0 MG/DL (60-110)
== END ==
LOC: M LAB REF 11:44
PROVIDERS: ATTEND Internal Medicine
DX: E11.9 Type 2 diabetes mellitus without complications (principal); E78.5 Hyperlipidemia, unspecified; K74.60 Unspecified cirrhosis of liver

== ENCOUNTER → 2025-05-25 | Outpatient (CLI) | payer BC ==
[2025-05-25 10:19] LABS: BASO # 0.0 10^3/uL (0.0-0.2); BASO % 0.9 % (0.0-1.0); EOS # 0.1 10^3/uL (0.0-0.5); EOS % 2.7 % (0.0-3.0); LYMPH # 0.7 10^3/uL (1.5-5.0); LYMPH % 20.2 % (24.0-44.0); MONO # 0.3 10^3/uL (0.0-0.8); MONO % 9.6 % (2.0-8.0); NEUTROPHILS # 2.2 10^3/uL (1.5-8.5); NEUTROPHILS % 66.3 % (36.0-66.0)
[2025-05-25 10:31] LABS: PLATELET COUNT, AUTOMATED 62 10^3/uL (150-450)
[2025-05-25 10:33] LABS: INR 1.13
[2025-05-25 10:51] LABS: ALT/SGPT 39 U/L (7.0-40); AST/SGOT 35 U/L (<34); CALCIUM LEVEL 8.7 MG/DL (8.3-10.6); CARBON DIOXIDE LEVEL 26 MMOL/L (20-31); CHLORIDE LEVEL 105 MMOL/L (98-107); CREATININE FOR GFR 0.66 MG/DL (0.70-1.30); GLOMERULAR FILTRATION RATE > 90.0 (>49); POTASSIUM SERUM 4.6 MMOL/L (3.5-5.1); SODIUM LEVEL 140 MMOL/L (136-145)
[2025-05-25 10:56] LABS: HEPATITIS B SURFACE ANTIBODY NEGATIVE (POSITIVE)
== END ==
LOC: M LAB 09:06
PROVIDERS: ATTEND Physician Assistant Medical
DX: K74.5 Biliary cirrhosis, unspecified (principal)

== ENCOUNTER → 2025-10-01 | Outpatient (CLI) | payer BC ==
[~2025-10-01] MED LIST changes: -ROSU10TA61; +ROSU10TA90
[2025-10-01 11:04] LABS: PLATELET COUNT, AUTOMATED 68 10^3/uL (150-450)
[2025-10-01 11:17] LABS: INR 1.16
[2025-10-01 11:20] LABS: ESTIMATED AVERAGE GLUCOSE 105.0 MG/DL (60-110)
[2025-10-01 11:22] LABS: ALT/SGPT 45 U/L (7.0-40); AST/SGOT 34 U/L (<34); CALCIUM LEVEL 9.0 MG/DL (8.3-10.6); CARBON DIOXIDE LEVEL 28 MMOL/L (20-31); CHLORIDE LEVEL 105 MMOL/L (98-107); CREATININE FOR GFR 0.66 MG/DL (0.70-1.30); GLOMERULAR FILTRATION RATE > 90.0 (>49); POTASSIUM SERUM 4.4 MMOL/L (3.5-5.1); SODIUM LEVEL 141 MMOL/L (136-145)
== END ==
LOC: M LAB 09:27
PROVIDERS: ATTEND Nurse Practitioner Family
DX: K74.69 Other cirrhosis of liver (principal)

== ENCOUNTER → 2025-10-29 | Outpatient (CLI) | payer BC ==
[~2025-10-29] MED LIST changes: +GADOXETATE DISODIUM 2.5 MMOL/10 ML VIAL As Ordered ONE
== END ==
LOC: M RAD 07:46
PROVIDERS: ATTEND Nurse Practitioner Family
DX: K74.60 Unspecified cirrhosis of liver (principal)